=== PATIENT | female | born 1955 | race Caucasian/White ===

== ENCOUNTER 2017-02-22 05:04 | Day surgery (SDC) | payer MEDICARE, MEDICAID ==
[~2017-02-22] VITALS: Ht 157.5 cm; Wt 110.0 kg
[~2017-02-22 05:04] MED LIST: ACTOS30 MG PO; ADULT ASPIRIN81 MG PO; ALBUTEROL I0.5 ML/EA AERO NEB; ALPHA LIPOIC ACID; AMBIEN10 MG PO; AMBIEN5 M1 PO; ANTACID CHEWAB1 EACH PO; APPLE CIDER VINEGAR PO; ASPIR-LOW81 MG PO; AXID150 M1 PO; BACTRIM DS TAB1 EAC1 PO; BENTYL10 MG PO; CINNAMON; CRANBERRY; CRESTOR5 M1; CRESTOR5 MG PO; CYCLOBENZAPRINE10 MG PO; CYCLOBENZAPRINE5 M1 PO; DILANTIN100 MG PO; DITROPAN5 MG PO; FISH OIL 1,0001 CA PO; FISH OIL 1,2001 EAC7 PO; FLEXERIL10 MG PO; FUROSEMIDE20 MG PO; GARLIC1000 M1 PO; GARLIC1000 MG PO; GLIPIZIDE XL10 MG PO; GLUCOPHAGE XR500 M1 PO; GLUCOPHAGE500 MG/TAB PO; GLUCOTROL XL10 M1 PO; HYDROCODON-ACE1 EA16; HYDROCODON-ACE1 EAC7 PO; LASIX20 M1 PO; LASIX20 MG PO; LEVEMIR FL100 UNIT/2 SC; LEVOXYL PO; LORAZEPAM1 MG PO; LUNESTA3 MG PO; LYRICA100 MG/CAP; MACROBID 100 M100 M1 PO; MELOXICAM7.5 MG PO; METFORMIN HCL500 PO; MOBIC7.5 M2; MOBIC7.5 MG PO; MULTI VITAMIN1 EAC1 PO; MULTIVITAMIN1 TAB PO; NIZATIDINE150 MG PO; NOVOLIN 70100 UNITS/ SC; OMEPRAZOLE40 M2 PO; PEPCID20 M1 PO; PERCOCET 5/3251 TAB PO; PHENYTOIN SODI100 MG PO; PRINIVIL5 M1 PO; SINGULAIR10 M1 PO; SINGULAIR10 MG PO; SYNTHROID137 MCG PO; TAB-A-VITE1 EAC1 PO; TRIMETHOPRIM100 MG PO; TUMERIC; VICTOZA0.6 MG/0.1 SQ; ZYRTEC10 M PO; ZYRTEC10 MG PO; [UNRECOGNIZED DRUG - OTHER]; [UNRECOGNIZED DRUG - OTHER]; [UNRECOGNIZED DRUG - OTHER] INH
[2017-02-22] MEDS ORDERED: SYNTHROID137 MC1 PO (06:13)
[2017-02-22] MEDS ORDERED: DILANTIN100 M1 PO (06:34)
[2017-02-22 07:17] LABS: BASO % 0.2 % (0-2); EOS % 1.3 % (0-7); HCT-HEMATOCRIT 38.2 % (34.0-49.0); HGB-HEMOGLOBIN 12.1 gm/dl (12.0-15.5); IMMATURE GRANULOCYTES ABSOLUTE 0.05 tho/cmm (0-0.03); IMMATURE GRANULOCYTES PERCENT 0.4 % (0-0.3); LYMPH % 40.1 % (20-45); MCH (MEAN CORPUSCULAR HGB) 28.4 pg (28.0-32.0); MCHC MEAN CORPUSCULAR HGB CONC 31.7 % (32.0-36.0); MCV (MEAN CELL VOLUME) 89.7 fl (82.0-96.0); MEAN PLATELET VOLUME 10.2 cmc (9.4-12.4); MONO % 8.1 % (0-12); NEUTROPHILS % 49.9 % (40-80); PLATELET COUNT 372 tho/cmm (150-450); RED BLOOD COUNT 4.26 mil/cmm (4.00-5.20); RED CELL DISTRIBUTION WIDTH 15.2 % (12.4-16.4)
[2017-02-22 07:21] LABS: EOSINOPHIL ABSOLUTE COUNT 0.2 tho/cmm (0.0-0.7); LYMPH ABSOLUTE COUNT 5.6 tho/cmm (0.8-4.5); MONOCYTE ABSOLUTE COUNT 1.1 tho/cmm (0.0-1.2)
[2017-02-22 07:28] LABS: ANION GAP 10 mmol/L (0-20); BLOOD UREA NITROGEN 17 mg/dl (6-24); CALCIUM 9.3 mg/dl (8.5-10.5); CARBON DIOXIDE-VENOUS 28 mmol/L (22-32); CHLORIDE 101 mmol/l (96-110); CREATININE 1.14 mg/dl (0.50-1.10); GLUCOSE 196 mg/dL (70-110); SODIUM 134 mmol/L (135-145); eGFR VALUE FOR BLACK 60 mL/Min
[2017-02-22 07:29] LABS: POTASSIUM 4.7 mmol/L (3.7-5.1)
== END 2017-02-22 10:10 ==
LOC: SRG 05:04 → SHSC 05:04 → SRG 05:30
PROVIDERS: Anesthesiology
DX: M21.611 Bunion of right foot (principal); Z53.8 Procedure and treatment not carried out for other reasons; M20.41 Other hammer toe(s) (acquired), right foot; M20.11 Hallux valgus (acquired), right foot; M20.12 Hallux valgus (acquired), left foot; R30.0 Dysuria; G89.29 Other chronic pain; M54.89 Other dorsalgia; K58.9 Irritable bowel syndrome, unspecified; G47.00 Insomnia, unspecified; E03.9 Hypothyroidism, unspecified; G47.30 Sleep apnea, unspecified; J45.909 Unspecified asthma, uncomplicated; E11.42 Type 2 diabetes mellitus with diabetic polyneuropathy; I10 Essential (primary) hypertension; K21.9 Gastro-esophageal reflux disease without esophagitis; E78.5 Hyperlipidemia, unspecified; G40.909 Epilepsy, unspecified, not intractable, without status epilepticus; H91.90 Unspecified hearing loss, unspecified ear; F41.9 Anxiety disorder, unspecified; Z79.4 Long term (current) use of insulin; Z79.84 Long term (current) use of oral hypoglycemic drugs; Z79.899 Other long term (current) drug therapy; Z88.8 Allergy status to other drugs, medicaments and biological substances
CPT/HCPCS: J0696